=== PATIENT | female | born 1985 | race Caucasian/White ===

== ENCOUNTER → 2023-09-15 | Outpatient (REF) | payer OTHER ==
[2023-09-15 17:43] LABS: C REACTIVE PROTEIN QUANTITATIV 1.5 MG/DL (<1.0)
== END ==
LOC: M SFHCRHEU 11:50
PROVIDERS: ATTEND Internal Medicine
DX: M25.50 Pain in unspecified joint (principal); E55.9 Vitamin D deficiency, unspecified

== ENCOUNTER → 2023-09-16 | Outpatient (REF) | payer OTHER ==
[2023-09-17 14:48] LABS: Candida species DETECTED (NOT DETECTED); Gardnerella vaginalis DETECTED (NOT DETECTED); Trichamonas vaginalis NOT DETECTED (NOT DETECTED)
== END ==
LOC: M SMT 12:45
PROVIDERS: ATTEND Specialist
DX: N76.1 Subacute and chronic vaginitis (principal)

== ENCOUNTER → 2023-10-09 | Outpatient (CLI) | payer OTHER | LOC: M PLARAD 13:29 | PROVIDERS: ATTEND Internal Medicine | DX: M54.9 Dorsalgia, unspecified (principal) ==

== ENCOUNTER → 2024-03-01 | Outpatient (CLI) | payer OTHER ==
[~2024-03-01] MED LIST: LORA-753 PO
[2024-03-01 10:28] LABS: APPEARANCE, URINE CLEAR (CLEAR); BACTERIA, URINE AUTO NEGATIVE (NEGATIVE); BILIRUBIN, URINE AUTO NEGATIVE (NEGATIVE); BLOOD, URINE BLOOD NEGATIVE (NEGATIVE); COLOR, URINE STRAW (YELLOW); GLUCOSE, URINE (UA) AUTO NEGATIVE (NEGATIVE); KETONE, URINE AUTO NEGATIVE (NEGATIVE); LEUKOCYTE ESTERASE, URINE AUTO NEGATIVE (NEGATIVE); NITRITE, URINE AUTO NEGATIVE (NEGATIVE); PROTEIN, URINE AUTO NEGATIVE (NEGATIVE); RBC, URINE AUTO 0 /HPF (0-3); SPECIFIC GRAVITY URINE AUTO 1.009 (1.002-1.035); SQUAMOUS EPITHELIAL CELL UR AU 1 /HPF (0-6); UROBILINOGEN, URINE AUTO 0.2 mg/dL (0.0-2.0); WBC, URINE AUTO 0 /HPF (0-3)
[2024-03-01 10:34] LABS: HEMATOCRIT 40.2 % (36.0-47.0); HEMOGLOBIN 13.6 g/dl (12.0-15.5); MEAN CORPUSCULAR HEMOGLOBIN 29.8 pg (27.0-33.0); MEAN CORPUSCULAR HGB CONC 33.8 g/dl (32.0-36.5); MEAN CORPUSCULAR VOLUME 88.2 fl (80.0-96.0); PLATELET COUNT, AUTOMATED 178 10^3/uL (150-450); RED BLOOD COUNT 4.56 10^6/uL (4.00-5.40); WHITE BLOOD COUNT 6.6 10^3/uL (4.0-10.0)
[2024-03-01 10:51] LABS: BLOOD UREA NITROGEN 13 MG/DL (9-23); CALCIUM LEVEL 8.8 MG/DL (8.5-10.1); CARBON DIOXIDE LEVEL 28 MMOL/L (20-31); CHLORIDE LEVEL 105 MMOL/L (98-107); CREATININE FOR GFR 0.77 MG/DL (0.55-1.30); GLOMERULAR FILTRATION RATE > 60.0 (>60); GLUCOSE, FASTING 105 MG/DL (60-100); POTASSIUM SERUM 4.2 MMOL/L (3.5-5.1); SODIUM LEVEL 139 MMOL/L (136-145)
== END ==
LOC: M PLALAB 08:34
PROVIDERS: ATTEND Specialist
DX: Z01.818 Encounter for other preprocedural examination (principal)

== ENCOUNTER 2024-03-09 09:21 | Day surgery (SDC) | payer OTHER ==
[~2024-03-09] VITALS: Ht 177.8 cm; Wt 105.8 kg
[2024-03-09] MEDS: LR 1,000 ML IV SCH (10:04)
[2024-03-09] MEDS: ESTROGENS VAGINAL CREAM 30GM As Ordered ONE (11:05)
[2024-03-09] MEDS: METHYLENE BLUE 0.5% (5MG/ML) 10 ML AMP (PROVAYBLUE) As Ordered ONE (11:05)
[2024-03-09] MEDS ORDERED: fentaNYL 100 MCG/2 ML INJECTION As Ordered ONE (11:06)
[2024-03-09] MEDS ORDERED: MIDAZOLAM INJ 2MG/2ML VIAL As Ordered ONE (11:06)
[2024-03-09] MEDS ORDERED: ACETAMINOPHEN 1000MG/100ML IV BAG As Ordered ONE (11:08)
[2024-03-09] MEDS ORDERED: LIDOCAINE 2% 100MG/5ML SDV (FOR ANES.) As Ordered ONE (11:09)
[2024-03-09] MEDS ORDERED: propofoL 200 MG/20 ML VIAL As Ordered ONE (11:12)
[2024-03-09] MEDS ORDERED: ONDANSETRON 4MG 2ML VIAL As Ordered ONE (11:13)
[2024-03-09] MEDS: FLUORESCEIN 10% (100MG/ML) 5ML VIAL As Ordered ONE (11:35)
[2024-03-09] MEDS: ceFAZolin SOD 2 GM in IV 1 EA IV ONE (11:40)
[2024-03-09] MEDS: GENTAMICIN SULF 80MG/2ML VIAL As Ordered ONE (12:00)
[2024-03-09] MEDS ORDERED: MEPERIDINE 50 MG/ML 1ML VIAL As Ordered ONE (12:23)
[2024-03-09] MEDS ORDERED: oxyCODONE 5MG TAB PO PRN (12:50)
[2024-03-09] MEDS ORDERED: fentaNYL 100 MCG/2 ML INJECTION IV PRN (12:50)
[2024-03-09] MEDS ORDERED: ONDANSETRON 4MG 2ML VIAL IV PRN (12:50)
[2024-03-09 13:50] VITALS: BP 133/63; TEMP 97.2; O2SAT 100
== END 2024-03-09 13:55 | disposition home or self-care (01) ==
LOC: M SDC 09:21
PROVIDERS: ATTEND Specialist
DX: N39.46 Mixed incontinence (principal); Z90.710 Acquired absence of both cervix and uterus; K21.9 Gastro-esophageal reflux disease without esophagitis; Z90.49 Acquired absence of other specified parts of digestive tract; Z90.89 Acquired absence of other organs; H91.91 Unspecified hearing loss, right ear; Z79.899 Other long term (current) drug therapy
CPT/HCPCS: 57288; C1771; J0131; J0665; J0690; J1100; J1580; J2175; J2250; J2405; J3010

== ENCOUNTER 2024-11-09 13:00 | Emergency (ER) | payer OTHER ==
[~2024-11-09] VITALS: Ht 175.3 cm; Wt 104.9 kg
[2024-11-09] MEDS ORDERED: SEMA2PEN (13:09)
[2024-11-09] MEDS ORDERED: ALLE60TA69 PO (13:09)
[2024-11-09] MEDS: diphenhydrAMINE 50 MG/ML VIAL IV ONE (13:40)
[2024-11-09] MEDS: FAMOTIDINE 20 MG/2 ML VIAL IVP ONE (13:40)
[2024-11-09] MEDS ORDERED: PRED50TA57 PO (16:04)
[2024-11-09] MEDS ORDERED: EPIP0.3I2 IM (16:05)
[2024-11-09 16:42] VITALS: BP 136/69; TEMP 97; O2SAT 96
== END 2024-11-09 16:44 | disposition home or self-care (01) ==
LOC: M ED 13:00
DX: T63.441A Toxic effect of venom of bees, accidental (unintentional), initial encounter (principal); Z91.030 Bee allergy status; Z79.52 Long term (current) use of systemic steroids; Z79.899 Other long term (current) drug therapy
CPT/HCPCS: 96374; 99284; J1100; J1200; J1308